=== PATIENT | male | born 1955 | race Asian ===

== ENCOUNTER 2017-03-17 11:03 | Inpatient (IN) | payer SELFPAY ==
[~2017-03-17] VITALS: Ht 167.6 cm; Wt 57.4 kg
[2017-03-17] MEDS ORDERED: SODIUM CHLORIDE 0.9% 1,000 ML IV ONE (12:30)
[2017-03-17 12:40] LABS: BASOPHILS % (AUTO) 0.6 % (0.0-2.0); EOSINOPHILS % (AUTO) 0.5 % (1.0-6.0); HEMATOCRIT 48.1 % (41-53); HEMOGLOBIN 15.8 g/dL (13.5-17.5); LYMPHOCYTES # (AUTO) 1.2 K/uL (1.0-4.8); LYMPHOCYTES % (AUTO) 17.8 % (22.0-44.0); MEAN CORPUSCULAR HEMOGLOBIN 34.2 pg (26.0-34.0); MEAN CORPUSCULAR HGB CONC 32.9 G/dL (31.0-37.0); MEAN CORPUSCULAR VOLUME 104 fL (80-100); MONOCYTES # (AUTO) 0.6 K/uL (0.1-1.0); NEUTROPHILS # (AUTO) 4.7 K/uL (1.8-7.7); NEUTROPHILS % (AUTO) 72.1 % (40.0-70.0); PLATELET COUNT (AUTO) 107 K/uL (150-450); RED BLOOD CELL COUNT(AUTO) 4.63 MIL/uL (4.50-5.90); WHITE BLOOD COUNT (AUTO) 6.5 K/uL (4.5-11.0)
[2017-03-17 13:03] LABS: ANION GAP 12 mmol/L (8-16); CALCIUM, TOTAL 8.7 mg/dL (8.8-10.5); CARBON DIOXIDE 26 mmol/L (22-29); CHLORIDE 103 mmol/L (98-107); CREATININE 1.24 mg/dL (0.60-1.30); GLOMERULAR FILTR. RATE CALC 59 mL/min (>60); POTASSIUM 4.6 mmol/L (3.5-5.1); SODIUM SERUM 141 mmol/L (136-145); UREA NITROGEN, BLOOD 17 mg/dL (7-18)
[2017-03-17 13:19] LABS: LACTIC ACID 2.7 mmol/L (0.4-2.0)
[2017-03-17 13:27] LABS: ALANINE AMINOTRANSFERASE 51 U/L (12-78); ALBUMIN 3.6 g/dL (3.4-5.0); ASPARTATE AMINOTRANSFERASE 60 U/L (15-37); BILIRUBIN,TOTAL 2.4 mg/dL (0.1-1.0); CREATINE KINASE MB 5.6 ng/mL (0-5); CREATINE KINASE, TOTAL 262 U/L (39-308); TOTAL PROTEIN, SERUM 6.6 g/dL (6.4-8.2)
[2017-03-17] MEDS ORDERED: ADENOSINE 3 MG/ML 2 ML VIAL IVP ONE (14:30)
[2017-03-17 14:35] LABS: REFLEX LACTIC ACID? YES YES
[2017-03-17] MEDS ORDERED: MAGNESIUM HYDROXIDE SUSPENSION 30 ML UDCUP PO PRN (14:45)
[2017-03-17] MEDS ORDERED: MAGNESIUM SULFATE 2 GM in DEXTROSE 5%-WATER 50 ML IV PRN (14:45)
[2017-03-17] MEDS ORDERED: ACETAMINOPHEN 325 MG TABLET PO PRN (14:45)
[2017-03-17] MEDS ORDERED: MAGNESIUM OXIDE 400 MG TABLET PO PRN (14:45)
[2017-03-17] MEDS ORDERED: POTASSIUM CHL 10 MEQ/WATER 50 ML IV PRN (14:45)
[2017-03-17] MEDS ORDERED: POTASSIUM CHLORIDE 20 MEQ ER TABLET PO PRN (14:45)
[2017-03-17] MEDS ORDERED: ONDANSETRON HCL 4 MG/2 ML VIAL IVP PRN (14:45)
[2017-03-17] MEDS ORDERED: MAGNESIUM SULFATE 4 GM/WATER 100 ML IV PRN (14:45)
[2017-03-17] MEDS ORDERED: LORazepam 2 MG/ML VIAL IVP PRN (14:45)
[2017-03-17] MEDS ORDERED: ALBUTEROL SULFATE 2.5 MG/0.5 ML NEB SOLUTION NEB PRN (14:45)
[2017-03-17] MEDS ORDERED: CARVEDILOL 3.125 MG TABLET PO SCH (15:00)
[2017-03-17] MEDS ORDERED: LISINOPRIL 10 MG TABLET PO SCH (15:00)
[2017-03-17 15:06] LABS: INR 1.1 (0.9-1.1); PROTHROMBIN TIME 11.4 SEC (9.4-11.6)
[2017-03-17 15:09] LABS: ALBUMIN 3.4 g/dL (3.4-5.0); MAGNESIUM 1.6 mg/dL (1.80-2.40)
[2017-03-17] MEDS: FUROSEMIDE 40 MG/4 ML VIAL IVP SCH (15:12)
[2017-03-17] MEDS: ASPIRIN 81 MG CHEWABLE TABLET PO SCH (15:12)
[2017-03-17] MEDS ORDERED: DIGOXIN 250 MCG/ML 2 ML AMP IVP ONE (15:15)
[2017-03-17] MEDS: HEPARIN SODIUM,PORCINE 5,000 UNITS/ML VIAL SQ SCH (16:10)
[2017-03-17 16:11] LABS: B-TYPE NATRIURETIC PEPTIDE 659 pg/mL (0-100)
[2017-03-17 16:55] LABS: APPEARANCE,URINE CLEAR (CLEAR); GLUCOSE, URINE (UA) NEGATIVE (NEGATIVE); KETONES,URINE NEGATIVE (NEGATIVE); LEUKOCYTE ESTERASE ,URINE NEGATIVE (NEGATIVE); OCCULT BLOOD,URINE NEGATIVE (NEGATIVE); PROTEIN,URINE NEGATIVE (NEGATIVE)
[2017-03-17 17:13] LABS: SQUAMOUS EPITHELIAL CELL,UR Rare /LPF (None Seen)
[2017-03-17 17:14] LABS: RBC,URINE 0-2 /HPF (0-2); WBC,URINE 0-2 /HPF (0-5)
[2017-03-17 17:24] VITALS: BP 104/54
[2017-03-17] MEDS ORDERED: PNEUMOCOCCAL VACCINE POLYVALENT 0.5 ML VIAL [PPSV23] IM ONE (18:15)
[2017-03-17 19:26] VITALS: BP 112/72
[2017-03-17] MEDS: DOCUSATE SODIUM 100 MG CAPSULE PO SCH (21:00)
[2017-03-17] MEDS: CARVEDILOL 6.25 MG TABLET PO SCH (21:06)
[2017-03-18] MEDS: HEPARIN SODIUM,PORCINE 5,000 UNITS/ML VIAL SQ SCH ×2 (00:33→08:08)
[2017-03-18] MEDS ORDERED: SODIUM CHLORIDE 0.9% 250 ML IV ONE (00:33)
[2017-03-18 00:38] VITALS: BP 124/81
[2017-03-18 05:17] VITALS: BP 116/82
[2017-03-18 06:19] LABS: ALBUMIN 2.8 g/dL (3.4-5.0); BILIRUBIN,TOTAL 1.3 mg/dL (0.1-1.0); CREATININE 1.36 mg/dL (0.60-1.30); MAGNESIUM 2.1 mg/dL (1.80-2.40); POTASSIUM 4.4 mmol/L (3.5-5.1); TOTAL PROTEIN, SERUM 5.4 g/dL (6.4-8.2)
[2017-03-18 06:26] LABS: LACTIC ACID 1.7 mmol/L (0.4-2.0)
[2017-03-18 07:28] VITALS: BP 118/76
[2017-03-18] MEDS: ASPIRIN 81 MG CHEWABLE TABLET PO SCH (08:08)
[2017-03-18] MEDS: MULTIVITAMINS WITH MINERALS, THERAPEUTIC TABLET PO SCH (08:09)
[2017-03-18] MEDS: PANTOPRAZOLE SODIUM 40 MG DR TABLET PO SCH (08:09)
[2017-03-18] MEDS: CARVEDILOL 6.25 MG TABLET PO SCH ×2 (08:09→20:22)
[2017-03-18] MEDS: DOCUSATE SODIUM 100 MG CAPSULE PO SCH ×2 (08:09→20:24)
[2017-03-18] MEDS: FUROSEMIDE 40 MG/4 ML VIAL IVP SCH (08:10)
[2017-03-18] MEDS ORDERED: LISINOPRIL 5 MG TABLET PO SCH (09:00)
[2017-03-18 10:07] LABS: BASOPHILS % (AUTO) 0.6 % (0.0-2.0); EOSINOPHILS % (AUTO) 1.4 % (1.0-6.0); HEMATOCRIT 42.4 % (41-53); HEMOGLOBIN 13.9 g/dL (13.5-17.5); LYMPHOCYTES # (AUTO) 1.1 K/uL (1.0-4.8); LYMPHOCYTES % (AUTO) 21.6 % (22.0-44.0); MEAN CORPUSCULAR HEMOGLOBIN 34.7 pg (26.0-34.0); MEAN CORPUSCULAR HGB CONC 32.9 G/dL (31.0-37.0); MEAN CORPUSCULAR VOLUME 106 fL (80-100); MONOCYTES # (AUTO) 0.6 K/uL (0.1-1.0); MONOCYTES % (AUTO) 11.6 % (2.0-9.0); NEUTROPHILS # (AUTO) 3.3 K/uL (1.8-7.7); NEUTROPHILS % (AUTO) 64.8 % (40.0-70.0); PLATELET COUNT (AUTO) 92 K/uL (150-450); RED BLOOD CELL COUNT(AUTO) 4.01 MIL/uL (4.50-5.90); RED CELL DISTRIBUTION WIDTH 15.9 % (11.5-14.5); WHITE BLOOD COUNT (AUTO) 5.1 K/uL (4.5-11.0)
[2017-03-18 10:51] LABS: RBC MORPHOLOGY COMMENT ABNORMAL RBC MORPH
[2017-03-18 11:27] VITALS: BP 103/60
[2017-03-18] MEDS ORDERED: SODIUM CHLORIDE 0.9% 100 ML ONE (12:15)
[2017-03-18 15:16] VITALS: BP 115/64
[2017-03-18] MEDS ORDERED: RIVAROXABAN 15 MG TABLET PO SCH (18:00)
[2017-03-18 20:06] VITALS: BP 126/71
[2017-03-19 00:04] VITALS: BP 115/72
[2017-03-19 05:31] VITALS: BP 122/72
[2017-03-19 06:23] LABS: BASOPHILS % (AUTO) 0.4 % (0.0-2.0); EOSINOPHILS % (AUTO) 1.9 % (1.0-6.0); HEMATOCRIT 44.6 % (41-53); HEMOGLOBIN 14.7 g/dL (13.5-17.5); LYMPHOCYTES # (AUTO) 1.7 K/uL (1.0-4.8); LYMPHOCYTES % (AUTO) 25.7 % (22.0-44.0); MEAN CORPUSCULAR HEMOGLOBIN 34.5 pg (26.0-34.0); MEAN CORPUSCULAR VOLUME 105 fL (80-100); MONOCYTES # (AUTO) 0.6 K/uL (0.1-1.0); NEUTROPHILS # (AUTO) 4.1 K/uL (1.8-7.7); PLATELET COUNT (AUTO) 97 K/uL (150-450); RED BLOOD CELL COUNT(AUTO) 4.27 MIL/uL (4.50-5.90); RED CELL DISTRIBUTION WIDTH 15.2 % (11.5-14.5); WHITE BLOOD COUNT (AUTO) 6.4 K/uL (4.5-11.0)
[2017-03-19 07:05] VITALS: BP 117/78
[2017-03-19 07:27] LABS: ALBUMIN 3.1 g/dL (3.4-5.0); CALCIUM, TOTAL 8.4 mg/dL (8.8-10.5); CREATININE 1.55 mg/dL (0.60-1.30); MAGNESIUM 1.8 mg/dL (1.80-2.40); TOTAL PROTEIN, SERUM 5.6 g/dL (6.4-8.2)
[2017-03-19] MEDS: DOCUSATE SODIUM 100 MG CAPSULE PO SCH (09:00)
[2017-03-19] MEDS: FUROSEMIDE 40 MG/4 ML VIAL IVP SCH (09:29)
[2017-03-19] MEDS: PANTOPRAZOLE SODIUM 40 MG DR TABLET PO SCH (09:29)
[2017-03-19] MEDS: MULTIVITAMINS WITH MINERALS, THERAPEUTIC TABLET PO SCH (09:30)
[2017-03-19] MEDS: CARVEDILOL 6.25 MG TABLET PO SCH (09:30)
[2017-03-19 11:21] VITALS: BP 121/72
[2017-03-19] MEDS ORDERED: CARV6 PO (14:18)
[2017-03-19] MEDS ORDERED: FURO40 PO (14:19)
[2017-03-19] MEDS ORDERED: RIVA15T PO (14:22)
[2017-03-19 15:46] VITALS: BP 108/79
== END 2017-03-19 16:15 | disposition left against medical advice (07) | DRG 314 ==
LOC: EMS 11:05 → 5N 16:35
PROVIDERS: ADMIT Internal Medicine; ATTEND Internal Medicine
DX: I42.8 Other cardiomyopathies (principal); I50.21 Acute systolic (congestive) heart failure; I48.92 Unspecified atrial flutter; E44.0 Moderate protein-calorie malnutrition; N17.9 Acute kidney failure, unspecified; F17.210 Nicotine dependence, cigarettes, uncomplicated; D69.6 Thrombocytopenia, unspecified; F10.20 Alcohol dependence, uncomplicated; M10.9 Gout, unspecified; Z53.21 Procedure and treatment not carried out due to patient leaving prior to being seen by health care provider; I48.0 Paroxysmal atrial fibrillation; Y90.9 Presence of alcohol in blood, level not specified; Z68.20 Body mass index [BMI] 20.0-20.9, adult
CPT/HCPCS: 71020; 83605; 83735; 87040; 90471; 93005; 93041; 93306; 96361; 96374; 96375; 99285; J0153; J1160; J1644; J1940; J3475; J7050; J7060

== ENCOUNTER → 2017-08-16 | Outpatient (CLI) | payer OTHER ==
[~2017-08-16] VITALS: Ht 165.1 cm; Wt 58.0 kg
[~2017-08-16] MED LIST: CARV6 PO; FURO40 PO; RIVA15T PO
[2017-08-16 14:30] VITALS: BP 107/61
== END | disposition home or self-care (01) ==
LOC: SRCNTR 11:20
PROVIDERS: ATTEND Internal Medicine Clinical Cardiac Electrophysiology
DX: Z45.02 Encounter for adjustment and management of automatic implantable cardiac defibrillator (principal); I10 Essential (primary) hypertension; I48.91 Unspecified atrial fibrillation; E78.5 Hyperlipidemia, unspecified; Z79.01 Long term (current) use of anticoagulants; Z86.73 Personal history of transient ischemic attack (TIA), and cerebral infarction without residual deficits; Z95.810 Presence of automatic (implantable) cardiac defibrillator
CPT/HCPCS: G0463

== ENCOUNTER → 2017-08-23 | Outpatient (CLI) | payer OTHER ==
[2017-08-23 13:05] VITALS: BP 96/56
== END | disposition home or self-care (01) ==
LOC: SRCNTR 09:41
PROVIDERS: ATTEND Internal Medicine Clinical Cardiac Electrophysiology
DX: Z45.02 Encounter for adjustment and management of automatic implantable cardiac defibrillator (principal)
CPT/HCPCS: G0463